=== PATIENT | male | born 1945 | race Caucasian/White ===

== ENCOUNTER → 2017-01-01 | Outpatient (CLI) | payer MEDICARE ==
[~2017-01-01] MED LIST: ASPI1TAB PO; SIMV20TA2 PO
[2017-01-01 12:17] LABS: MEAN CORPUSCULAR HEMOGLOBIN 30.6 pg (27.0-33.0); MEAN CORPUSCULAR HGB CONC 33.1 g/dl (32.0-36.5); MEAN CORPUSCULAR VOLUME 92.6 fl (80.0-96.0); RED CELL DISTRIBUTION WIDTH 12.4 % (11.5-14.5); WHITE BLOOD COUNT 5.4 K/mm3 (4.0-10.0)
[2017-01-01 12:34] LABS: INR 1.05
[2017-01-01 12:41] LABS: ALBUMIN 3.8 GM/DL (3.2-5.2); ALBUMIN/GLOBULIN RATIO 1.19 (1.00-1.93); ALKALINE PHOSPHATASE 63 U/L (45-117); ALT/SGPT 27 U/L (12-78); ANION GAP 7 MEQ/L (8-16); AST/SGOT 14 U/L (15-37); BILIRUBIN,TOTAL 0.3 MG/DL (0.2-1.0); BLOOD UREA NITROGEN 25 MG/DL (7-18); CALCIUM LEVEL 8.9 MG/DL (8.8-10.2); CARBON DIOXIDE LEVEL 29 MEQ/L (21-32); CHLORIDE LEVEL 105 MEQ/L (98-107); CREATININE FOR GFR 0.77 MG/DL (0.70-1.30); GLOMERULAR FILTRATION RATE > 60.0 (>42); GLUCOSE, FASTING 123 MG/DL (83-110); POTASSIUM SERUM 3.7 MEQ/L (3.5-5.1); SODIUM LEVEL 141 MEQ/L (136-145)
--- NOTE | 2017-01-01 14:58 | REP ---
Chest x-ray: Two views. History: Anesthesia protocol. No comparison views. Findings: The lungs are symmetrically aerated and clear. Pleural angles are sharp. Heart is not enlarged. The aorta is tortuous. Pulmonary vasculature is not increased. There are mild degenerative changes in the thoracic spine and upper lumbar spine. 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 Thoracic aortic tortuosity. Otherwise no acute disease. Signed by Clemente Howell MD 01/01/2017 04:35 P
--- NOTE | 2017-01-02 19:53 | ECGEPIP ---
Stationary ECG Study [facility] Test Date: 2017-01-01 Pat Name: SHAQ SARMIENTO Department: Room: - Gender: M Gutter Mouth Cutter: TRINI : 1945 Requested By: Eb Bautista Order Number: [id number] Reading MD: Mirta Barrera Measurements Intervals Orient Rate: 57 P: 48 MO: 170 QRS: -26 QRSD: 87 T: 26 QT: 383 QTc: 374 Interpretive Statements SINUS BRADYCARDIA NO PRIOR Electronically Signed On 01-02-2017 19:53:35 EDT by Mirta Barrera
== END ==
LOC: EDSEX → EDUNIT# 10:30 → M ADMPAT 10:51
PROVIDERS: ATTEND Orthopaedic Surgery
DX: Z01.818 Encounter for other preprocedural examination (principal); M16.11 Unilateral primary osteoarthritis, right hip; Z79.899 Other long term (current) drug therapy; Z79.01 Long term (current) use of anticoagulants

== ENCOUNTER 2017-01-15 07:05 | Inpatient (IN) | payer MEDICARE ==
[2017-01-01 11:47] VITALS: BP 150/86
--- NOTE | 2017-01-09 17:19 | HPE ---
DATE OF SCHEDULED ADMISSION: 01/15/2017 HISTORY OF PRESENT ILLNESS: This is a pleasant male with continuing symptomatic right hip osteoarthritis. He has consented for a right total hip arthroplasty per Dr. Eb Grubbs. Medical optimization was completed by Dr. Chen on 01/02/2017. X-rays are consistent with advanced osteoarthritis. ALLERGIES: None known to medication. MEDICATION LIST: Includes: - Bactroban 2% - Hibiclens scrub - Coumadin 5 mg, which he will take by mouth at bedtime the night before surgery. - aspirin 81 mg one by mouth every day - simvastatin 20 mg, take one tablet by mouth at bedtime. MEDICAL PROBLEM LIST: Includes: symptomatic right hip osteoarthritis. Hypercholesteremia. PAST SURGICAL HISTORY: Positive for prostatectomy. FAMILY HISTORY: Positive for heart disease, hypertension, diabetes. SOCIAL HISTORY: He has never smoked cigarettes and denies ethanol intake. REVIEW OF SYSTEMS: Denies chest pain, shortness of breath, dyspnea on exertion, fever, chills, malaise, upper respiratory, urinary tract symptoms. PHYSICAL EXAMINATION: Blood pressure 120/70, pulse 67, respirations 16. Weight 141.2. Height is 65. Temperature is 98.1. This is a pleasant, well-developed, well-nourished white male in no acute distress. Alert and oriented times three. Mood and affect are appropriate. Right hip range of motion is limited with irritability throughout ranges. He ambulates with favoring of left lower extremity, antalgia about the right. Normocephalic. Chest rises symmetrically. Lungs: clear to auscultation. Heart: Regular rate and rhythm. Neck: Supple. Negative jugular venous distention (JVD) or bruits. Bowel sounds times four, soft, nontender. Bilateral lower extremities: Benign, noninfectious looking. Labs were inspected. Nasal and sinus culture showed Citrobacter koseri, few, normal christian. Urine culture negative. AST/SGOT 14. Anion gap 7. BUN 25. Glucose fasting 123. Chest x-ray shows degenerative disc changes in thoracic and lumbar spine with thoracic aortic tortuosity. No acute disease. EKG: Sinus bradycardia. IMPRESSION: 1. Symptomatic right hip osteoarthritis. 2. The patient consented for a right total hip arthroplasty per Dr. Eb Grubbs. 3. Medical optimization per Dr. Chen. 4. One gram IV Kefzol in operating room (OR). 5. Sequential compression device (SCD) and thromboembolism deterrents (TEDs) in OR. MTDD
[~2017-01-15] VITALS: Ht 162.6 cm; Wt 63.5 kg
[2017-01-15] MEDS ORDERED: ACETAMINOPHEN 500 MG TAB PO ONE (07:15)
[2017-01-15] MEDS ORDERED: LR 1,000 ML IV SCH ×4 (07:15→15:15)
[2017-01-15] MEDS ORDERED: ceFAZolin 1GM INJ (J0690) As Ordered ONE (07:24)
[2017-01-15] MEDS ORDERED: MIDAZOLAM INJ 2 MG/2 ML VIAL (J2250) As Ordered ONE (09:33)
[2017-01-15] MEDS ORDERED: fentaNYL 100 MCG/2 ML INJECTION (J3010) As Ordered ONE (09:33)
[2017-01-15] MEDS ORDERED: PROPOFOL 200 MG/20 ML VIAL As Ordered ONE (09:33)
[2017-01-15] MEDS ORDERED: LIDOCAINE 2% INJ 100 MG/5 ML SDV (FOR ANES.) As Ordered ONE (09:33)
[2017-01-15] MEDS ORDERED: ONDANSETRON 4MG/2ML VIAL (J2405) As Ordered ONE (13:19)
[2017-01-15] MEDS ORDERED: ePHEDrine SULFATE 25 MG/5 ML(5MG/ML) SYRINGE As Ordered ONE (13:28)
[2017-01-15] MEDS ORDERED: PHENYLephrine HCL 500 MCG/5 ML (100MCG/ML) SYRINGE (J2370) As Ordered ONE (13:28)
[2017-01-15] MEDS ORDERED: MORPHINE 1MG/ML IN 0.9% NACL 100ML IV BAG As Ordered ONE (15:04)
[2017-01-15] MEDS ORDERED: NALOXONE INJ 0.4 MG/1 ML VIAL (J2310) IV PRN (15:15)
[2017-01-15] MEDS ORDERED: diphenhydrAMINE INJ 50MG/ML VIAL (J1200) IV PRN (15:15)
[2017-01-15] MEDS ORDERED: ONDANSETRON 4MG/2ML VIAL (J2405) IV PRN ×2 (15:15)
[2017-01-15] MEDS ORDERED: EPIDURAL/PCA KEYS XX PRN (15:15)
[2017-01-15] MEDS ORDERED: FLEET ENEMA PR PRN (15:15)
[2017-01-15] MEDS ORDERED: MORPHINE 2 MG/ML 1ML SYRINGE IV PRN (15:15)
[2017-01-15] MEDS ORDERED: MORPHINE 1MG/ML IN 0.9% NACL 100ML IV BAG IV PRN (15:15)
[2017-01-15] MEDS ORDERED: ACETAMINOPHEN TAB 650MG DOSE (2X325MG) PO PRN (15:15)
[2017-01-15] MEDS ORDERED: ceFAZolin SOD 1 GM in D5W MINI-BAG PLUS 50 ML IV SCH (15:15)
[2017-01-15] MEDS ORDERED: PERCOCET 5MG/325MG TAB PO PRN (15:15)
[2017-01-15] MEDS ORDERED: NALBUPHINE HCL 10 MG/ML AMP (J2300) IV PRN (15:15)
[2017-01-15] MEDS ORDERED: METOCLOPRAMIDE INJ 10MG/2ML VIAL (J2765) IV PRN (15:15)
[2017-01-15] MEDS ORDERED: fentaNYL 100 MCG/2 ML INJECTION (J3010) IV PRN (15:15)
[2017-01-15 16:15] VITALS: BP 186/84
[2017-01-15 16:45] VITALS: BP 168/77
[2017-01-15] MEDS ORDERED: WARFARIN SOD 5 MG TAB PO SCH (17:00)
[2017-01-15] MEDS ORDERED: WARFARIN SOD 5 MG TAB PO ONE (17:00)
[2017-01-15 17:45] VITALS: BP 112/60
[2017-01-15] MEDS: ceFAZolin SOD 1 GM in D5W MINI-BAG PLUS 50 ML IV SCH (18:23)
[2017-01-15 18:45] VITALS: BP 115/62
[2017-01-15 19:45] VITALS: BP 145/60
[2017-01-15] MEDS: SIMVASTATIN 20 MG TAB PO SCH (20:03)
[2017-01-15 20:45] VITALS: BP 138/65
[2017-01-16] VITALS (7 sets, daily range): BP systolic 107–120; BP diastolic 53–72
[2017-01-16] MEDS: ceFAZolin SOD 1 GM in D5W MINI-BAG PLUS 50 ML IV SCH ×2 (01:16→06:19)
[2017-01-16] MEDS ORDERED: ONDANSETRON 4 MG TAB (S0181) PO PRN (06:45)
[2017-01-16] MEDS ORDERED: PERCOCET 5MG/325MG TAB PO PRN (06:45)
[2017-01-16 07:27] LABS: MEAN CORPUSCULAR HEMOGLOBIN 30.6 pg (27.0-33.0); MEAN CORPUSCULAR HGB CONC 33.5 g/dl (32.0-36.5); MEAN CORPUSCULAR VOLUME 91.5 fl (80.0-96.0); RED CELL DISTRIBUTION WIDTH 12.7 % (11.5-14.5); WHITE BLOOD COUNT 9.5 K/mm3 (4.0-10.0)
[2017-01-16 07:32] LABS: INR 1.4
[2017-01-16 07:56] LABS: ANION GAP 5 MEQ/L (8-16); BLOOD UREA NITROGEN 15 MG/DL (7-18); CALCIUM LEVEL 8.1 MG/DL (8.8-10.2); CARBON DIOXIDE LEVEL 31 MEQ/L (21-32); CHLORIDE LEVEL 103 MEQ/L (98-107); CREATININE FOR GFR 0.82 MG/DL (0.70-1.30); GLOMERULAR FILTRATION RATE > 60.0 (>42); GLUCOSE, FASTING 151 MG/DL (83-110); SODIUM LEVEL 139 MEQ/L (136-145)
[2017-01-16] MEDS: PERCOCET 5MG/325MG TAB PO PRN ×3 (08:12→20:21)
[2017-01-16] MEDS: MOM 30ML SUSPENSION UDC PO SCH (08:13)
[2017-01-16] MEDS: MIRALAX *UNIT DOSE* 17GM PACKET PO SCH (08:13)
[2017-01-16] MEDS: SENOKOT S TAB PO SCH ×2 (08:13→20:20)
[2017-01-16] MEDS: ASPIRIN 81 MG CHEW TABLET PO SCH (08:13)
--- NOTE | 2017-01-16 09:01 | REP ---
Clinical: Status post arthroplasty. Technique: AP and cross-table lateral views. Findings: The patient is status post right hip replacement with normal positioning and appearance to the femoral and acetabular components. Overlying postsurgical changes appreciated. Impression: Satisfactory right hip replacement radiographs. Signed by Chucky Bright MD 01/16/2017 08:52 A
--- NOTE | 2017-01-16 09:20 | RO ---
DATE OF PROCEDURE: 01/15/2017 PREPROCEDURE DIAGNOSIS: Right hip degenerative arthritis. POSTPROCEDURE DIAGNOSIS: Right hip degenerative arthritis. PROCEDURE: Right total hip arthroplasty using a Size 3 [place] stem standard offset with a +5 neck, 36 mm head size with a 52 cup with a 36 mm neutral polyethylene liner. Prosthesis made by [employer]. It was a [place] stem. SURGEON: Dr. Eb Grubbs [employer]: Mr. Obdulio Cabrera ANESTHESIA: Spinal. ESTIMATED BLOOD LOSS: 150 mL. SPECIMEN: Femoral head. COMPLICATIONS: None. PROCEDURE: Antibiotics were given intravenously preoperatively and then a Scott catheter was placed. Successful spinal anesthetic was induced and he was placed in a lateral position on a Cristóbal hip positioner with down leg well padded, especially the peroneal nerve. Axillary roll utilized. The right hip area was then carefully prepped and draped in the usual sterile fashion. Then, after an appropriate time out, a longitudinal incision was made for a direct lateral approach to the hip. Bovie cautery was used to coagulate crossing vessels. We divided the skin incision down to the tensor fascia and divided the tensor fascia in line with the skin incision. Then, the gluteus medius was split in the anterior 1/3 posterior 2/3 junction. Underlying gluteus minimus and anterior capsule was then divided and carefully dissected off the proximal aspect of the anterior femur. Then, the hip was dislocated anteriorly and the leg was placed into a leg bag anteriorly. Starter reamer was then placed into the piriformis fossa, followed by the canal finding reamer and then the lateralizing reamer. Then, we reamed up to a size 3 reamer. Femoral neck osteotomy performed using the template. Then, we broached up to a size 3 broach. We then exposed the acetabulum and performed a labral excision 360 degrees. Then began reaming down to the tear drop, first with a 46 mm reamer and then expanded from there to a 51 mm reamer. The trial 52 fit nicely using the alignment guide. We then placed the real cup, it fit nicely. The central hole eliminator was placed. We of course irrigated before we placed the cup and as well as afterward. Then we placed the real polyethylene and made sure it was seated fully. We then trialed with a #3 broach in position after irrigating out the femoral canal. Then, we trialed between a 1.5 neck up to an 8.5 neck and felt that the 5 fit the best. He had excellent cup position. He was very stable to flexion and internal rotation with adduction as well as extension and external rotation. The cut was about a little more than a fingers breath above the lesser trochanter, thus I felt the +5 neck was the appropriate size. Thus, we removed the broach and irrigated the femoral canal and placed the real #3 standard offset stem, dried the trunnion and placed the +5 x 36 mm diameter head and then reduced the hip after irrigating once again. We then anatomically closed the hip capsule and gluteus minimus back to its position with interrupted #1 PDS sutures, irrigating between layers and closed the gluteus medius back anatomically with interrupted #1 PDS sutures. We closed the tensor fascia with interrupted #1 PDS sutures, irrigating between layers and closed the deep subdermal tissues with interrupted #2-0 PDS suture. The skin was closed with jose rafael and covered by Adaptic and dry sterile bulky dressing. He was then turned supine and then transferred to the recovery room in stable condition. There were no intraoperative complications. Mr. Obdulio Cabrera was critical to the success of the procedure by helping to manipulate the hip several times throughout the operation and help to dislocate and relocate the hip and help to close the wound and help prepare the patient, amongst many other tasks.
[2017-01-16] MEDS ORDERED: WARFARIN SOD 5 MG TAB PO ONE (17:00)
[2017-01-16] MEDS: SIMVASTATIN 20 MG TAB PO SCH (20:20)
[2017-01-17 06:00] VITALS: BP 119/57
[2017-01-17 06:39] LABS: MEAN CORPUSCULAR HEMOGLOBIN 31.2 pg (27.0-33.0); MEAN CORPUSCULAR HGB CONC 34.3 g/dl (32.0-36.5); MEAN CORPUSCULAR VOLUME 90.9 fl (80.0-96.0); RED CELL DISTRIBUTION WIDTH 12.5 % (11.5-14.5); WHITE BLOOD COUNT 8.5 K/mm3 (4.0-10.0)
[2017-01-17 06:49] LABS: ANION GAP 2 MEQ/L (8-16); BLOOD UREA NITROGEN 16 MG/DL (7-18); CALCIUM LEVEL 8.2 MG/DL (8.8-10.2); CARBON DIOXIDE LEVEL 34 MEQ/L (21-32); CHLORIDE LEVEL 102 MEQ/L (98-107); CREATININE FOR GFR 0.69 MG/DL (0.70-1.30); GLOMERULAR FILTRATION RATE > 60.0 (>42); GLUCOSE, FASTING 123 MG/DL (83-110); INR 1.8; POTASSIUM SERUM 4.1 MEQ/L (3.5-5.1); SODIUM LEVEL 138 MEQ/L (136-145)
[2017-01-17] MEDS ORDERED: PERC5TAB6 PO (07:08)
[2017-01-17] MEDS ORDERED: COUM2.5T11 PO (07:08)
[2017-01-17] MEDS: SENOKOT S TAB PO SCH (09:44)
[2017-01-17] MEDS: ASPIRIN 81 MG CHEW TABLET PO SCH (09:44)
[2017-01-17] MEDS: PERCOCET 5MG/325MG TAB PO PRN (09:44)
[2017-01-17] MEDS: MIRALAX *UNIT DOSE* 17GM PACKET PO SCH (09:45)
[2017-01-17] MEDS: MOM 30ML SUSPENSION UDC PO SCH (09:45)
[2017-01-17] MEDS ORDERED: WARFARIN SOD 5 MG TAB PO ONE (17:00)
== END 2017-01-17 11:49 | disposition home health service (06) | DRG 470 ==
LOC: M OR 07:05 → M MS5PR 15:55
PROVIDERS: ADMIT Orthopaedic Surgery; ATTEND Orthopaedic Surgery
PROC: 0SR90JA Replacement of Right Hip Joint with Synthetic Substitute, Uncemented, Open Approach (ICD-10-PCS; principal; 2017-01-15 09:50)
DX: M16.11 Unilateral primary osteoarthritis, right hip (principal); Z79.01 Long term (current) use of anticoagulants; Z79.899 Other long term (current) drug therapy; E78.00 Pure hypercholesterolemia, unspecified

== ENCOUNTER → 2017-01-30 | Outpatient (REF) | payer MEDICARE ==
[~2017-01-30] MED LIST changes: +COUM2.5T11 PO; +PERC5TAB6 PO
[2017-01-30 13:59] LABS: INR 1.98
== END ==
LOC: M LABDRAW1 12:51
PROVIDERS: ATTEND Nurse Practitioner Family
DX: Z51.81 Encounter for therapeutic drug level monitoring (principal); Z79.01 Long term (current) use of anticoagulants

== ENCOUNTER 2024-02-16 06:33 | Day surgery (SDC) | payer MEDICARE ==
[~2024-02-16] VITALS: Ht 165.1 cm; Wt 65.2 kg
[~2024-02-16 06:33] MED LIST changes: -ASPI1TAB PO; +ASPI81TA26 PO; +ATROPINE SULFATE 1% OPHTH SOLN 2ML BTL OD SCH; -COUM2.5T11 PO; +COUM2.5T17 PO; +FLURBIPROFEN 0.03% OPHTH SOLN 2.5 ML OD SCH; +LISI20TA33 PO; +METF-838 PO; +PERC5TAB12 PO; -PERC5TAB6 PO; +PHENYLEPHRINE 2.5% OPHTH SOL 2ML OD SCH; +ROSU10TA61 PO; -SIMV20TA2 PO; +SIMV20TA22 PO; +TETRACAINE 0.5% OPHTH SOLN 4ML OD SCH
[2024-02-16] MEDS ORDERED: LR 1,000 ML IV SCH (07:00)
[2024-02-16] MEDS ORDERED: MIDAZOLAM INJ 2MG/2ML VIAL As Ordered ONE (08:11)
[2024-02-16] MEDS: LIDOCAINE 1% SDV 5ML VIAL As Ordered ONE (08:20)
[2024-02-16] MEDS: CEFUROXIME 1MG/0.1ML INTRACAMERAL INJ As Ordered ONE (08:20)
[2024-02-16 08:38] VITALS: BP 146/72; TEMP 97.9; O2SAT 99
== END 2024-02-16 08:57 | disposition home or self-care (01) ==
LOC: M SDC 06:33
PROVIDERS: ATTEND Ophthalmology
DX: E11.36 Type 2 diabetes mellitus with diabetic cataract (principal); H25.11 Age-related nuclear cataract, right eye; I10 Essential (primary) hypertension; E78.00 Pure hypercholesterolemia, unspecified; I73.00 Raynaud's syndrome without gangrene; Z79.84 Long term (current) use of oral hypoglycemic drugs; Z79.899 Other long term (current) drug therapy; Z90.79 Acquired absence of other genital organ(s)
CPT/HCPCS: 66984; J0697; J2250; V2632